=== PATIENT | male | born 1970 | race Asian ===

== ENCOUNTER 2024-04-24 00:28 | Emergency (ER) | payer OTHER, MEDICAID, SELFPAY ==
--- NOTE | 2024-04-24 00:34 | ED.UPPEXIN ---
HPI - Extremity Injury (Upper) General Chief Complaint: Extremity Problem,Nontraumatic Stated Complaint: left hand swelling Time Seen by Provider: 04/24/24 00:30 History of Present Illness HPI narrative: (history via adult family member at bedside who was able to translate from [facility] to Amharic) 54-year-old [facility] male complains of redness and swelling to the top of the left hand for the last 1 week, denies any specific injury, no punctures or stings recalled, did not punch anyone in the mouth, no history of gout known, no history of arthritis no fevers or chills. No redness extending to the palmar side of the hand, or to other finger area of the same hand. No redness or swelling to the forearm. Related Data Previous Rx's Medication Instructions Recorded amoxicillin 875 mg-potassium 1 tab PO BID 7 days #14 tabs 04/24/24 clavulanate 125 mg tablet sulfamethoxazole 800 1 tab PO BID #14 tabs 04/24/24 mg-trimethoprim 160 mg tablet (Bactrim DS) Allergies Allergy/AdvReac Type Severity Reaction Status Date / Time No Known Drug Allergies Allergy Verified 04/24/24 01:12 Review of Systems Review of Systems Narrative: see HPI Patient History Social History Smoking Status: Never smoker Exam Narrative Exam Narrative: GENERAL: Well-developed patient, in mild distress. HEAD: Atraumatic. Normocephalic. EYES: Pupils equal round and reactive. Extraocular motions intact. No scleral icterus. No injection or drainage. ENT: Nose without bleeding, purulent drainage. Throat without erythema, tonsillar hypertrophy or exudate. Airway patent. NECK: Trachea midline. Non tender CARDIOVASCULAR: Regular rate and rhythm without murmurs, gallops, or rubs. RESPIRATORY: Clear to auscultation. Breath sounds equal bilaterally. No wheezes, rales, or rhonchi. GASTROINTESTINAL: Abdomen soft, non-tender, nondistended. EXTREMITIES: Erythema to dorsal left 1st MCP area proximally 2.5 cm, no fluctuance, no expressible fluid, able to flex hand into a fist position, fully extend all fingers BACK: Nontender without deformity or crepitance. No flank tenderness. NEURO: AOx3. SKIN: No rash or erythema of visible areas Initial Vital Signs Initial Vital Signs: Vital Signs Temperature 97.9 F 04/24/24 00:40 Pulse Rate 80 04/24/24 00:40 Respiratory Rate 20 04/24/24 00:40 Blood Pressure 131/81 04/24/24 00:40 Pulse Oximetry 100 04/24/24 00:40 Oxygen Delivery Method Room Air 04/24/24 00:40 Course Orders Ordered: ED Orders 04/24/24 00:35 XR hand LT min 3V Stat 04/24/24 01:15 CBC Auto Diff [Complete Blood Count AUTO DIFF] Stat CMP [Comprehensive Metabolic Panel] Stat CRP [C-Reactive Protein Quant] Stat ESR [Erythrocyte Sedimentation Rate] Stat Discontinued Medications Amoxicillin/Clavulanate Potassium (Amoxicillin/Clav 875/125 Mg) 1 tab PO NOW ONE Stop: 04/24/24 01:01 Last Admin: 04/24/24 01:08 Dose: 1 tab Sodium Chloride (Normal Saline 0.9%) 1,000 mls @ 1,000 mls/hr IV BOLUS ONE Stop: 04/24/24 02:14 Last Infusion: 04/24/24 02:11 Dose: Infused Insulin Human Regular (Insulin Regular 100 Unit/Ml 3 Ml Vial) 5 unit SUBCUT NOW ONE Stop: 04/24/24 01:59 Last Admin: 04/24/24 02:06 Dose: 5 unit Tramadol HCl (Tramadol 50 Mg Tablet) 100 mg PO NOW ONE Stop: 04/24/24 01:23 Last Admin: 04/24/24 01:29 Dose: 100 mg Tramadol HCl (Tramadol 50 Mg Prepack) 1 bottle MISC DIRECTED ONE Stop: 04/24/24 01:23 Last Admin: 04/24/24 01:29 Dose: 1 bottle Trimethoprim/Sulfamethoxazole (Trimeth/Sulfa 160/800 (Ds) Tablet) 1 tab PO NOW ONE Stop: 04/24/24 01:18 Last Admin: 04/24/24 02:44 Dose: Not Given Trimethoprim/Sulfamethoxazole (Trimeth/Sulfa 160/800 (Ds) Tablet) 1 tab PO NOW ONE Stop: 04/24/24 01:20 Last Admin: 04/24/24 01:32 Dose: 1 tab Vital Signs Vital signs: Vital Signs - 8 hr 04/24/24 00:40 04/24/24 02:29 04/24/24 02:42 Temperature 97.9 F Pulse Rate 80 83 Respiratory Rate 20 Blood Pressure 131/81 130/72 130/72 Pulse Oximetry 100 100 Oxygen Delivery Method Room Air Room Air MDM - Extremity Injury (Upper) Lab Data Lab results narrative: Glucose 318, history of diabetes known, normal anion gap, doubt DKA. White blood cell count 9600. Potassium 4.2 noted. CRP 2.5 not elevated 04/24/24 01:22 04/24/24 01:22 Labs: Lab Results 04/24/24 Range/Units 01:22 WBC 9.6 (4.5-11.0) X10^3/uL RBC 4.20 L (4.5-5.9) X10^6/uL Hgb 11.7 L (13.5-17.5) g/dL Hct 34.1 L (41-53) % MCV 81.2 (80-100) fL MCH 27.9 (26-34) PG MCHC 34.4 (30-36) % RDW 12.9 (11.6-14.8) % Plt Count 278 (150-400) X10^3/uL Neut % (Auto) 63.3 (50-75) % Lymph % (Auto) 27.7 (25-40) % [place] % (Auto) 6.3 (3-14) % Eos % (Auto) 1.7 L (2-4) % Baso % (Auto) 1.0 (0-2) % Neut # (Auto) 6100 (1065-3637) /uL Lymph # (Auto) 2700 (1579-8004) /uL [place] # (Auto) 600 (0-900) /uL Eos # (Auto) 200 (0-450) /uL Baso # (Auto) 100 (0-100) /uL ESR 69 H (0-15) MM/HR Sodium 132 L (137-145) mmol/L Potassium 4.2 (3.4-5.1) mmol/L Chloride 100 (98-107) mmol/L Carbon Dioxide 24 (22-32) mmol/L BUN 30 H (9-20) mg/dL Creatinine 1.02 (0.66-1.25) mg/dL Estimated GFR > 60 (>60) mL/min BUN/Creatinine Ratio 29.4 H (6-22) Glucose 318 H (70-100) mg/dL Calcium 9.5 (8.4-10.2) mg/dL Total Bilirubin 0.3 (0.2-1.3) mg/dL AST 49 (17-59) IU/L ALT 25 (<50) IU/L Alkaline Phosphatase 211 H (38-126) U/L C-Reactive Protein 2.5 H (<1.0) mg/dL Total Protein 7.6 (6.3-8.2) g/dL Albumin 3.9 (3.5-5.0) g/dL Globulin 3.7 (1.7-4.1) g/dL Albumin/Globulin Ratio 1.1 (1.0-2.8) Point of Care Testing Glucose POC 319 Imaging Data Extremity x-ray #1: My Impression: No obvious fracture or foreign body, on my view from Radiology portable display at bedside Radiologist's Impression: [address] [address] XRay Report Signed Patient: Cecilia Martins MR#: [id number] : 1970 Acct:[id number] Age/Sex: 54 / M Date of Service: 04/24/24 Loc: ED Accession Number: [id number] Procedure: XR hand LT min 3V Ordering Provider: Manuel Machado MD PROCEDURE: XR HAND LT MIN 3V INDICATIONS: L hand swelling TECHNIQUE: 3 views of the hand(s) acquired. COMPARISON: None. FINDINGS: Bones: No fractures or dislocations. Mild degenerative changes. Carpal bones are normally aligned. No suspicious bony lesions. Soft tissues: No suspicious soft tissue calcifications. IMPRESSION: No acute bony abnormality. Dictated by: Ata Leon M.D. on 04/24/2024 at 1:17 Approved by: Ata Leon M.D. on 04/24/2024 at 1:18 [facility] Narrative Medical decision making narrative: 54-year-old male with swelling redness to the dorsal left 1st MCP area, no fight bite or puncture or other trauma recalled, first clinical evaluation. No fever, SIRS screen negative. Able to flex and extend his hand and fingers fully. Does not seem to have swelling or tenderness along the extensor tendon, nor any swelling or redness extending to the palmar surface of the hand. X-rays left hand negative for fracture or foreign body. P.o. Augmentin and PO Bactrim 1st doses, prescription sent for further antibiotics, recheck with Orthopedic surgery on Friday advised, contact information for their office of Dr. Fontenot. History of diabetes, fingerstick glucose 300s, CMP and CBC ordered, along with ESR and CRP. IV fluid bolus. AGap normal, K normal, add 5u SQ RHI. Repeat glucose 270s decreasing. Home with family as planned. Follow-up with Ortho on Friday04/26/24. Home with family Discharge Plan Departure Patient Disposition: Home Clinical Impression: Cellulitis of hand, History of diabetes mellitus, Hyperglycemia Instructions: DI for Cellulitis -- Adult Activity Restrictions/Additional Instructions: Redness and swelling to dorsal aspect left hand in the area of the index finger metacarpal joint, no specific injury or puncture or fight-bite recalled. X-ray did not show obvious fracture or foreign body materials. Not all forms of foreign bodies however are seen on a regular x-ray. First doses Augmentin and Bactrim antibiotics given, prescription sent for further doses to take over the weekend and for 1 week. Take antibiotics as directed. History of diabetes, elevated blood sugar, IV fluids and insulin given, sugar level improved. Continue taking your diabetes medications as directed. Recheck advised in the clinic of Orthopedic surgery on Friday, contact information for the office of Dr. Fontenot orthopedic surgery. Return earlier to this/nearest emergency department for any change worsening symptoms or any concerns prior Prescriptions: New amoxicillin-pot clavulanate 875-125 mg tablet 1 tab PO BID 7 Days Qty: 14 0RF sulfamethoxazole-trimethoprim [Bactrim DS] 800-160 mg tablet 1 tab PO BID Qty: 14 0RF Referrals: Maria Cardoso MD [Primary Care Provider] - Ashok Fontenot MD [Physician] - Stand Alone Forms: Patient Portal/API, Work Release Note
[2024-04-24 00:40] VITALS: BP 131/81; PULSE 80; RESP 20; TEMP 36.6; O2SAT 100; BMI 25.8
[2024-04-24] MEDS: AMOXICILLIN/CLAV 875/125 MG 1 TAB PO (01:08)
[2024-04-24] MEDS: SODIUM CHLORIDE 0.9% 1,000 ML 1000 ML IV (01:28)
[2024-04-24] MEDS: TRAMADOL 50 MG PREPACK 1 BOTTLE MISC (01:29)
[2024-04-24] MEDS: TRAMADOL 50 MG TABLET 100 MG PO (01:29)
[2024-04-24 01:32] LABS: Add Manual Diff / Slide Review NO; Basophils Absolute Auto 100 /uL (0-100); Eosinophils Absolute Auto 200 /uL (0-450); Eosinophils Percent Auto 1.7 % (2-4); Hematocrit 34.1 % (41-53); Hemoglobin 11.7 g/dL (13.5-17.5); Lymphocytes Absolute Auto 2700 /uL (1100-4500); Lymphocytes Percent Auto 27.7 % (25-40); Mean Corpuscular HGB Conc 34.4 % (30-36); Mean Corpuscular Hemoglobin 27.9 PG (26-34); Mean Corpuscular Volume 81.2 fL (80-100); Monocytes Absolute Auto 600 /uL (0-900); Monocytes Percent Auto 6.3 % (3-14); Neutrophils Absolute Auto 6100 /uL (1500-7000); Neutrophils Percent Auto 63.3 % (50-75); Platelet Count 278 X10^3/uL (150-400); Red Cell Distribution Width 12.9 % (11.6-14.8); White Blood Cell Count 9.6 X10^3/uL (4.5-11.0)
[2024-04-24] MEDS: TRIMETH/SULFA 160/800 (DS) TABLET 1 TAB PO (01:32)
[2024-04-24 01:45] LABS: Alanine Aminotransferase 25 IU/L (<50); Albumin 3.9 g/dL (3.5-5.0); Albumin Globulin Ratio 1.1 (1.0-2.8); Alkaline Phosphatase 211 U/L (38-126); Aspartate Aminotransferase 49 IU/L (17-59); BUN Creatinine Ratio 29.4 (6-22); Bilirubin Total 0.3 mg/dL (0.2-1.3); Blood Urea Nitrogen 30 mg/dL (9-20); Calcium 9.5 mg/dL (8.4-10.2); Carbon Dioxide 24 mmol/L (22-32); Chloride 100 mmol/L (98-107); Estimated Glomerular Filt Rate > 60 mL/min (>60); Globulin 3.7 g/dL (1.7-4.1); Glucose 318 mg/dL (70-100); HEMOLYSIS < 15 (0-50); Potassium 4.2 mmol/L (3.4-5.1); Sodium 132 mmol/L (137-145); Total Protein 7.6 g/dL (6.3-8.2)
[2024-04-24 01:48] LABS: C-Reactive Protein Quant 2.5 mg/dL (<1.0)
[2024-04-24 01:53] LABS: Erythrocyte Sedimentation Rate 69 MM/HR (0-15)
[2024-04-24] MEDS: INSULIN REGULAR 100 UNIT/ML 3 ML VIAL SUBCUT (02:06)
[2024-04-24 02:29] VITALS: BP 130/72; PULSE 83; O2SAT 100
[2024-04-24 02:42] VITALS: BP 130/72
== END 2024-04-24 02:53 | disposition home or self-care (01) ==
PROVIDERS: Emergency Provider Emergency Medicine; PCP Family Medicine
DX: L03.114 Cellulitis of left upper limb (principal); E11.65 Type 2 diabetes mellitus with hyperglycemia
CPT/HCPCS: 73130; 80053; 82962; 85025; 85651; 86140; 96360; 96372; 99284

== ENCOUNTER → 2024-04-29 15:28 | Outpatient (CLI) | payer OTHER, MEDICAID, SELFPAY ==
--- NOTE | 2024-04-29 15:31 | DI.MRI.S_ITS ---
PROCEDURE: MR HAND LT WO CON INDICATIONS: INJURY TO LEFT INDEX FINGER TECHNIQUE: Noncontrast coronal T1 spin echo and T2 fast spin echo with fat saturation, axial proton density fast spin echo and T2 fast spin echo with fat saturation, sagittal T1 spin echo and STIR through the hand and fingers. COMPARISON: [facility], CR, XR HAND LT MIN 3V, 04/24/2024, 0:44. FINDINGS: Image quality: Excellent. Second digit: Marrow edema of the 2nd proximal phalangeal base and marked marrow edema of the 2nd metacarpal head, extending proximally to the 2nd metacarpal diaphysis, representing marrow contusion. No associated fracture. There is moderate amount of fluid tracking along the dorsal cortex of the 2nd metacarpal, deep to the extensor tendon. Marked muscle edema about the 2nd metacarpal. The ulnar collateral ligament at the 2nd metacarpophalangeal joint is intact. There is mild sprain of the radial collateral ligament at the 2nd metacarpophalangeal joint. Third digit: Moderate degenerative changes of the 3rd metacarpophalangeal joint with subchondral cystic changes and mild subchondral marrow edema. There is mild flexion deformity at the 3rd proximal interphalangeal joint. Moderate amount of fluid at the 3rd proximal interphalangeal joint. Mild tenosynovitis of the 3rd flexor tendon at the level of the 3rd proximal phalanx. There is high-grade, partial width tear of the extensor tendon at the level of the 3rd proximal phalanx (series 6, image 21). Other findings: Mild subchondral marrow edema of the proximal scaphoid, nonspecific. IMPRESSION: 1. Marrow contusion of the 2nd proximal phalangeal base and the 2nd metacarpal. Moderate amount fluid versus hematoma tracking along the dorsal cortex of the 2nd metacarpal. Mild sprain of the radial collateral ligament of the 2nd metacarpophalangeal joint. 2. Mild flexion deformity of the 3rd proximal interphalangeal joint. Mild tenosynovitis of the 3rd flexor tendon at the level of the 3rd proximal phalanx. High-grade tear of the extensor tendon at the level of the 3rd proximal phalanx. 3. Moderate degenerative change of the 3rd metacarpophalangeal joint. Dictated by: Serena Roy M.D. on 04/30/2024 at 13:59 Approved by: Serena Roy M.D. on 04/30/2024 at 14:12
== END ==
LOC: MRI 15:30
PROVIDERS: PCP Family Medicine; Referring Provider Physician Assistant Medical; Visit Provider Physician Assistant Medical
DX: S60.022A Contusion of left index finger without damage to nail, initial encounter (principal); S69.92XA Unspecified injury of left wrist, hand and finger(s), initial encounter; S63.651A Sprain of metacarpophalangeal joint of left index finger, initial encounter; S66.313A Strain of extensor muscle, fascia and tendon of left middle finger at wrist and hand level, initial encounter; M65.842 Other synovitis and tenosynovitis, left hand; X58.XXXA Exposure to other specified factors, initial encounter
CPT/HCPCS: 73218